=== PATIENT | male | born 1950 | race Caucasian/White ===

== ENCOUNTER → 2024-05-20 06:24 | Outpatient (REF) | payer MEDICARE, BC, SELFPAY ==
[2024-05-20 09:53] LABS: % Basophils 0.9 % (0-2); % Eosinophils 4.7 % (0-6); % Immature Granulocytes 0.4 % (0-0.5); % Lymphocytes 24.7 % (20.5-51.1); % Monocytes 9.5 % (1.7-9.3); % Neutrophils 59.8 % (42.2-75.2); Absolute Basophils 0.1 10^3/uL (0-0.2); Absolute Eosinophils 0.3 10^3/uL (0-0.7); Absolute Lymphocytes 1.4 10^3/uL (1.2-3.4); Absolute Monocytes 0.5 10^3/uL (0.1-0.6); Absolute Neutrophils 3.4 10^3/uL (1.4-6.5); Hematocrit 42.5 % (39.0-52.0); Hemoglobin 14.7 g/dL (13.0-18.0); Mean Corp Hgb Conc. 34.6 g/dL (33.0-37.0); Mean Corpuscular Hgb 29.7 pg (27.0-31.0); Mean Corpuscular Volume 85.9 fL (80.0-94.0); Mean Platelet Volume 12.6 fL (7.4-10.4); Nucleated Red Blood Cells % 0 % (-); Platelet Count 128 10^3/uL (130-400); Red Blood Cell Count 4.95 10^6/uL (4.70-6.10); White Blood Cell Count 5.7 10^3/uL (4.8-10.8)
[2024-05-20 10:24] LABS: ALT (SGPT) 36 U/L (0-50); AST (SGOT) 35 U/L (17-59); Albumin 4.3 g/dl (3.5-5.0); Alkaline Phosphatase 105 U/L (38-126); Blood Urea Nitrogen 27 mg/dl (9-20); Calcium 9.1 mg/dl (8.4-10.2); Carbon Dioxide 26 mmol/L (22-30); Chloride 106 mmol/L (98-107); Glucose 97 mg/dl (70-99); HDL Cholesterol 36 mg/dl; LDL Cholesterol, Calculated 52 mg/dl; Potassium 4.2 mmol/L (3.5-5.1); Sodium 138 mmol/L (135-145); Total Bilirubin 1.4 mg/dl (0.2-1.3); Total Cholesterol 102 mg/dl (50-199); Total Protein 6.6 g/dl (6.3-8.2); Triglyceride 74 mg/dl (10-149); Very Low Density Lipoprotein 14 mg/dl (0-30); eGFR 48.55
[2024-05-20 10:53] LABS: Glycohemoglobin (HgbA1c) 5.6 % (4.0-5.6)
[2024-05-20 10:57] LABS: PSA, Total - Screen 3.03 ng/ml (0.0-4.0); TSH Reflex To Free T4 1.72 uIU/ml (0.47-4.68)
== END ==
LOC: HWLAB 06:24
PROVIDERS: ATTENDING PHYSICIAN Family Medicine
DX: R73.01 Impaired fasting glucose (principal); Z95.1 Presence of aortocoronary bypass graft; N13.2 Hydronephrosis with renal and ureteral calculous obstruction; E03.9 Hypothyroidism, unspecified; E78.2 Mixed hyperlipidemia; D64.9 Anemia, unspecified; Z12.5 Encounter for screening for malignant neoplasm of prostate
CPT/HCPCS: 36415; 80053; 80061; 83036; 84443; 85025; G0103

== ENCOUNTER → 2024-06-15 12:45 | Outpatient (REF) | payer MEDICARE, BC, SELFPAY | LOC: HWRAD 12:45 | PROVIDERS: ATTENDING PHYSICIAN Family Medicine | DX: K59.00 Constipation, unspecified (principal) | CPT/HCPCS: 74022 ==

== ENCOUNTER → 2024-07-31 09:28 | Outpatient (REF) | payer MEDICARE, BC, SELFPAY ==
[2024-07-31 11:31] LABS: % Basophils 0.8 % (0-2); % Immature Granulocytes 0.2 % (0-0.5); % Lymphocytes 21.8 % (20.5-51.1); % Monocytes 7.8 % (1.7-9.3); % Neutrophils 66.4 % (42.2-75.2); Absolute Eosinophils 0.2 10^3/uL (0-0.7); Absolute Lymphocytes 1.2 10^3/uL (1.2-3.4); Absolute Monocytes 0.4 10^3/uL (0.1-0.6); Absolute Neutrophils 3.5 10^3/uL (1.4-6.5); Hematocrit 41.3 % (39.0-52.0); Hemoglobin 14.3 g/dL (13.0-18.0); Mean Corp Hgb Conc. 34.6 g/dL (33.0-37.0); Mean Corpuscular Hgb 29.6 pg (27.0-31.0); Mean Corpuscular Volume 85.5 fL (80.0-94.0); Mean Platelet Volume 12.4 fL (7.4-10.4); Nucleated Red Blood Cells % 0 % (-); Platelet Count 119 10^3/uL (130-400); Red Blood Cell Count 4.83 10^6/uL (4.70-6.10); Red Cell Dist. Width 13.7 % (11.5-14.5); White Blood Cell Count 5.3 10^3/uL (4.8-10.8)
[2024-08-02 03:04] LABS: ANA, IgG Reflex to HEp-2 None Detected (None Detected)
[2024-08-02 09:16] LABS: Platelet Antibody, Direct IgG Negative (Negative); Platelet Antibody, Direct IgM Negative (Negative)
== END ==
LOC: HWLAB 09:28
PROVIDERS: ATTENDING PHYSICIAN Internal Medicine Hematology & Oncology; FAMILY PHYSICIAN Family Medicine
DX: D72.810 Lymphocytopenia (principal)
CPT/HCPCS: 36415; 85025; 86023; 86038

== ENCOUNTER → 2024-08-25 09:36 | Outpatient (REF) | payer MEDICARE, BC, SELFPAY ==
[2024-08-25 12:48] LABS: % Basophils 0.8 % (0-2); % Eosinophils 2.1 % (0-6); % Immature Granulocytes 0.2 % (0-0.5); % Lymphocytes 21.9 % (20.5-51.1); % Monocytes 7.3 % (1.7-9.3); % Neutrophils 67.7 % (42.2-75.2); Absolute Eosinophils 0.1 10^3/uL (0-0.7); Absolute Lymphocytes 1.1 10^3/uL (1.2-3.4); Absolute Monocytes 0.4 10^3/uL (0.1-0.6); Absolute Neutrophils 3.5 10^3/uL (1.4-6.5); Hematocrit 43.1 % (39.0-52.0); Hemoglobin 14.6 g/dL (13.0-18.0); Mean Corp Hgb Conc. 33.9 g/dL (33.0-37.0); Mean Corpuscular Hgb 29.7 pg (27.0-31.0); Mean Corpuscular Volume 87.8 fL (80.0-94.0); Mean Platelet Volume 12.7 fL (7.4-10.4); Nucleated Red Blood Cells % 0 % (-); Platelet Count 119 10^3/uL (130-400); Red Blood Cell Count 4.91 10^6/uL (4.70-6.10); Red Cell Dist. Width 13.5 % (11.5-14.5); White Blood Cell Count 5.2 10^3/uL (4.8-10.8)
[2024-08-26 20:05] LABS: Platelet Antibody, Direct IgG Negative (Negative); Platelet Antibody, Direct IgM Negative (Negative)
[2024-08-27 05:05] LABS: ANA, IgG Reflex to HEp-2 None Detected (None Detected)
== END ==
LOC: HWLAB 09:36
PROVIDERS: ATTENDING PHYSICIAN Internal Medicine Hematology & Oncology; FAMILY PHYSICIAN Family Medicine
DX: D72.810 Lymphocytopenia (principal); R16.1 Splenomegaly, not elsewhere classified
CPT/HCPCS: 36415; 85025; 86023; 86038

== ENCOUNTER → 2024-09-09 10:02 | Outpatient (REF) | payer MEDICARE, BC, SELFPAY ==
[2024-09-09 12:18] LABS: Blood Urea Nitrogen 31 mg/dl (9-20)
== END ==
LOC: HWLAB 10:02
PROVIDERS: ATTENDING PHYSICIAN Internal Medicine Hematology & Oncology; FAMILY PHYSICIAN Family Medicine
DX: D72.810 Lymphocytopenia (principal); R16.1 Splenomegaly, not elsewhere classified
CPT/HCPCS: 36415; 74160; 82565; 84520; Q9967

== ENCOUNTER → 2024-10-15 06:40 | Outpatient (REF) | payer MEDICARE, BC, SELFPAY | LOC: RAD 06:40 | PROVIDERS: ATTENDING PHYSICIAN Family Medicine | DX: I73.9 Peripheral vascular disease, unspecified (principal) | CPT/HCPCS: 93922; 93925 ==

== ENCOUNTER → 2024-12-08 06:58 | Outpatient (REF) | payer MEDICARE, BC, SELFPAY ==
[2024-12-08 07:35] VITALS: BP 139/82; BP_SYST 54
[2024-12-08 07:35] LABS: % Basophils 0.7 % (0-2); % Eosinophils 2.2 % (0-6); % Immature Granulocytes 0.1 % (0-0.5); % Lymphocytes 20.1 % (20.5-51.1); % Monocytes 8.3 % (1.7-9.3); % Neutrophils 68.6 % (42.2-75.2); Absolute Basophils 0.1 10^3/uL (0-0.2); Absolute Eosinophils 0.2 10^3/uL (0-0.7); Absolute Lymphocytes 1.4 10^3/uL (1.2-3.4); Absolute Monocytes 0.6 10^3/uL (0.1-0.6); Absolute Neutrophils 4.7 10^3/uL (1.4-6.5); Hemoglobin 14.8 g/dL (13.0-18.0); Mean Corp Hgb Conc. 34.4 g/dL (33.0-37.0); Mean Corpuscular Hgb 29.8 pg (27.0-31.0); Mean Corpuscular Volume 86.7 fL (80.0-94.0); Mean Platelet Volume 11.3 fL (7.4-10.4); Nucleated Red Blood Cells % 0 % (-); Platelet Count 173 10^3/uL (130-400); Red Blood Cell Count 4.96 10^6/uL (4.70-6.10); White Blood Cell Count 6.9 10^3/uL (4.8-10.8)
[2024-12-08 07:36] LABS: INR 0.96; PT 13.1 Sec (11.4-14.6)
[2024-12-08] MEDS: ATIVAN 0.5 MG IV (08:16)
[2024-12-08] MEDS: NSS (PRESERVATIVE FREE) 0.25 ML IV (08:16)
[2024-12-08] MEDS: FLUSH (NSS) 1 FLUSH IV (08:17)
[2024-12-08 08:55] VITALS: BP 133/84; BP_SYST 57
[2024-12-08 09:00] VITALS: BP 124/72; BP_SYST 57
[2024-12-08 09:05] VITALS: BP 128/72; BP_SYST 54
[2024-12-08 09:10] VITALS: BP 137/90; BP_SYST 55
[2024-12-08 09:21] VITALS: BP 137/90
== END ==
LOC: RADI 06:58
PROVIDERS: ATTENDING PHYSICIAN Internal Medicine Hematology & Oncology; FAMILY PHYSICIAN Family Medicine; REFERRING PHYSICIAN Physician Assistant
DX: D72.810 Lymphocytopenia (principal); D69.6 Thrombocytopenia, unspecified; Z79.01 Long term (current) use of anticoagulants
CPT/HCPCS: 88305; 88311; 88312; 36415; 38222; 77012; 85025; 85610; 88313

== ENCOUNTER → 2025-02-02 15:19 | Outpatient (REF) | payer MEDICARE, BC, SELFPAY ==
[2025-02-02 15:56] LABS: % Basophils 1.1 % (0-2); % Eosinophils 4.9 % (0-6); % Immature Granulocytes 0.3 % (0-0.5); % Lymphocytes 25.4 % (20.5-51.1); % Monocytes 10.5 % (1.7-9.3); % Neutrophils 57.8 % (42.2-75.2); Absolute Basophils 0.1 10^3/uL (0-0.2); Absolute Eosinophils 0.3 10^3/uL (0-0.7); Absolute Lymphocytes 1.7 10^3/uL (1.2-3.4); Absolute Monocytes 0.7 10^3/uL (0.1-0.6); Absolute Neutrophils 3.8 10^3/uL (1.4-6.5); Hematocrit 41.6 % (39.0-52.0); Hemoglobin 14.6 g/dL (13.0-18.0); Mean Corp Hgb Conc. 35.1 g/dL (33.0-37.0); Mean Corpuscular Hgb 30.5 pg (27.0-31.0); Mean Platelet Volume 12.5 fL (7.4-10.4); Nucleated Red Blood Cells % 0 % (-); Platelet Count 125 10^3/uL (130-400); Red Blood Cell Count 4.78 10^6/uL (4.70-6.10); White Blood Cell Count 6.5 10^3/uL (4.8-10.8)
[2025-02-02 16:02] LABS: ALT (SGPT) 31 U/L (0-50); AST (SGOT) 25 U/L (17-59); Albumin 4.7 g/dl (3.5-5.0); Alkaline Phosphatase 102 U/L (38-126); Blood Urea Nitrogen 32 mg/dl (9-20); Calcium 9.3 mg/dl (8.4-10.2); Carbon Dioxide 25 mmol/L (22-30); Chloride 105 mmol/L (98-107); Glucose 103 mg/dl (70-99); Potassium 4.4 mmol/L (3.5-5.1); Sodium 141 mmol/L (135-145); Total Bilirubin 1.5 mg/dl (0.2-1.3); Total Protein 6.8 g/dl (6.3-8.2); eGFR 52.41
== END ==
LOC: RCS 15:19
PROVIDERS: ATTENDING PHYSICIAN Nurse Practitioner; FAMILY PHYSICIAN Family Medicine; REFERRING PHYSICIAN Internal Medicine Interventional Cardiology
DX: I25.10 Atherosclerotic heart disease of native coronary artery without angina pectoris (principal); N18.31 Chronic kidney disease, stage 3a; Z95.1 Presence of aortocoronary bypass graft
CPT/HCPCS: 36415; 80053; 85025; 93306

== ENCOUNTER 2025-02-03 06:48 | Day surgery (SDC) | payer MEDICARE, BC, SELFPAY ==
[2025-02-03] VITALS (17 sets, daily range): BP systolic 97–132; BP diastolic 55–88; BMI 23.7
[2025-02-03] MEDS: LOW STRENGTH ASPIRIN 81 MG PO (07:21)
[2025-02-03] MEDS: NSS 225 ML IV (07:27)
[2025-02-03] MEDS: NSS 1000 IV (09:46)
--- NOTE | 2025-02-03 10:15 | ITS.CL.CATH ---
Physician Neonatology - Catheterization
Cardiac Catheterization
Procedure Report:
LEFT HEART CATHETERIZATION
Date of Procedure: February 03, 2025
Referring: Evelin Constantino PA-C, Karl Benavidez MD
PROCEDURES:
1. Left heart catheterization, coronary angiogram.
2. Selective graft angiography.
3. Moderate sedation.
4. Functional physiologic testing with IFR of mid RCA.
INDICATION: Mr. Samuel is a 74-year-old gentleman with past medical history of hypertension, hyperlipidemia, coronary artery disease status post coronary artery bypass grafting by Dr. Kirk Nieto in 2020 with a MCGHEE to LAD, saphenous vein graft
to RPDA and a saphenous vein graft to D1 who presents with 3 to 4 days ago with exertional chest discomfort being referred for left heart catheterization to rule out obstructive CAD. Currently he is not on any antianginal medications. He has not
had to use any sublingual nitroglycerin either. Chest discomfort generally resolves after resting about 10 minutes. No associated dyspnea on exertion.
ACCESS: Left radial artery, 6 [place] sheath, under ultrasound guidance
HEMODYNAMICS : (mmHg)
AO (s/d) : 112/50
LV (s/d) : 112/4
LVEDP : 17
CORONARY FINDINGS
DOMINANCE: Right
LEFT MAIN: The left main artery is a large-caliber, short vessel which gives rise to the left anterior descending artery and the left circumflex artery. There is mild diffuse atherosclerotic plaque.
LEFT ANTERIOR DESCENDING: The left anterior descending artery is a medium to large caliber vessel with a occlusion in the midportion with a patent MCGHEE graft. Proximal to mid LAD has a 80% stenosis.
CIRCUMFLEX: The left circumflex artery is a medium caliber vessel which gives rise to 1 major obtuse marginal branch. There is 30 to 40% stable ostial left circumflex stenosis. Mid left circumflex has 40 to 50% eccentric stenosis. Proximal OM1
has 30% stenosis. Distal left circumflex artery just beyond OM1 takeoff is a very small caliber vessel with 90% stenosis and not a PCI target.
RIGHT CORONARY ARTERY: The right coronary artery is a medium caliber heavily calcified vessel which gives rise to the right posterior descending artery and the right posterolateral system. Mid RCA has a 50% stenosis. Ostial RPDA appears to be a
likely 100% chronic total occlusion with right to right bridging collaterals. IFR of mid RCA was negative at 0.95
GRAFT ANGIOGRAPHY:
1. MCGHEE to LAD is widely patent.
2. Saphenous vein graft to diagonal is patent.
3. Saphenous vein graft to RPDA is occluded proximally.
HEMODYNAMIC ASSESSMENT OF THE MID RCA WITH A [place] OMNI WIRE: The origin of the RCA was cannulated with a 6 Fr JR4 guide catheter. Intravenous heparin was administered and the ACT was followed during the procedure. Two hundred micrograms of
intracoronary nitroglycerin was given through the guide catheter. A [place] Omni wire was advanced to the guide catheter tip and normalized to guide catheter pressure. The Omni wire was then carefully manipulated across the stenosis in the mid RCA
with the iFR above the ischemic threshold serially measuring 0.95, 0.96, 0.96. The Omni wire was then pulled back to the guide catheter where the Pd/Pa measured 1.0 confirming no baseline drift in pressure readings
SEDATION: 47 minutes of procedural sedation was utilized. An independent medical aides teacher was present to assist with and help manage the patient's level of consciousness and physiologic status.
RADIATION SUMMARY: Fluoro Time (min): 19.5, Dose (mGy): 603, DAP (Gy.cm2) : 38 point
Closure Device: Vascular band over left radial artery, 10 cc of air.
CONCLUSIONS
1. Significant [place] coronary artery disease.
2. MCGHEE to LAD and saphenous vein graft to diagonal are patent.
3. Saphenous vein graft to RPDA is occluded.
4. [place] RCA has a calcified 50% mid RCA stenosis which is IFR negative at 0.95.
5. Ostial RPDA appears to be a likely 100% chronic total occlusion with right to right bridging collaterals.
6. Mildly elevated LVEDP at 17 mmHg.
RECOMMENDATIONS
1. Initiate antianginal therapy for recent exertional angina with amlodipine. Uptitrate as needed for residual symptoms.
2. Aggressive management of cardiovascular risk factors.
3. Wean radial band per protocol.
4. Referral for outpatient cardiac rehab.
Copy to: Evelin Constantino PA-C, Karl Benavidez MD
Bella Myers MD, [facility], [facility]
[2025-02-03 15:47] LABS: ACT-LR - POC 326 Seconds (116-155)
== END 2025-02-03 14:20 | disposition home or self-care (01) ==
LOC: CATH 06:48
PROVIDERS: ATTENDING PHYSICIAN Internal Medicine Interventional Cardiology; FAMILY PHYSICIAN Family Medicine; OTHER PHYSICIAN Internal Medicine Cardiovascular Disease
DX: I25.10 Atherosclerotic heart disease of native coronary artery without angina pectoris (principal); Z87.891 Personal history of nicotine dependence; Z95.5 Presence of coronary angioplasty implant and graft; E78.00 Pure hypercholesterolemia, unspecified; E03.9 Hypothyroidism, unspecified
CPT/HCPCS: 93799; 99152; 99153; 85347; 93459; C1769; C1894; Q9967

== ENCOUNTER 2025-03-04 10:00 | Outpatient (RCR) | payer MEDICARE, BC, SELFPAY ==
[2025-03-05 09:00] LABS: HDL Cholesterol 31 mg/dl; LDL Cholesterol, Calculated 51 mg/dl; Total Cholesterol 94 mg/dl (50-199); Triglyceride 64 mg/dl (10-149); Very Low Density Lipoprotein 12 mg/dl (0-30)
== END 2025-03-04 23:59 | disposition home or self-care (01) ==
LOC: CRHB 10:00
PROVIDERS: ATTENDING PHYSICIAN Internal Medicine Cardiovascular Disease; FAMILY PHYSICIAN Family Medicine
DX: I25.119 Atherosclerotic heart disease of native coronary artery with unspecified angina pectoris (principal); Z95.1 Presence of aortocoronary bypass graft
CPT/HCPCS: 36415; 80061; G0422; G0423

== ENCOUNTER 2025-04-05 08:51 | Outpatient (RCR) | payer MEDICARE, BC, SELFPAY | END 2025-04-05 23:59 | disposition home or self-care (01) | LOC: CRHB 08:51 | PROVIDERS: ATTENDING PHYSICIAN Internal Medicine Cardiovascular Disease; FAMILY PHYSICIAN Family Medicine | DX: I25.118 Atherosclerotic heart disease of native coronary artery with other forms of angina pectoris (principal) | CPT/HCPCS: G0422; G0423 ==

== ENCOUNTER 2025-05-05 08:42 | Outpatient (RCR) | payer MEDICARE, BC, SELFPAY | END 2025-05-05 23:59 | disposition home or self-care (01) | LOC: CRHB 08:42 | PROVIDERS: ATTENDING PHYSICIAN Internal Medicine Cardiovascular Disease; FAMILY PHYSICIAN Family Medicine | DX: I25.118 Atherosclerotic heart disease of native coronary artery with other forms of angina pectoris (principal); I25.119 Atherosclerotic heart disease of native coronary artery with unspecified angina pectoris (principal) | CPT/HCPCS: G0422; G0423 ==

== ENCOUNTER → 2025-05-20 06:08 | Outpatient (REF) | payer MEDICARE, BC, SELFPAY ==
[2025-05-20 09:50] LABS: ALT (SGPT) 52 U/L (0-50); AST (SGOT) 32 U/L (17-59); Albumin 4.7 g/dl (3.5-5.0); Alkaline Phosphatase 97 U/L (38-126); HDL Cholesterol 39 mg/dl; LDL Cholesterol, Calculated 57 mg/dl; Total Protein 7.1 g/dl (6.3-8.2); Very Low Density Lipoprotein 14 mg/dl (0-30)
== END ==
LOC: HWLAB 06:08
PROVIDERS: ATTENDING PHYSICIAN Internal Medicine Cardiovascular Disease; FAMILY PHYSICIAN Family Medicine
DX: E78.2 Mixed hyperlipidemia (principal)
CPT/HCPCS: 36415; 80061; 80076

== ENCOUNTER 2025-05-31 07:30 | Outpatient (RCR) | payer MEDICARE, BC, SELFPAY | END 2025-05-31 13:24 | disposition home or self-care (01) | LOC: CRHB 07:30 | PROVIDERS: ATTENDING PHYSICIAN Internal Medicine Cardiovascular Disease; FAMILY PHYSICIAN Family Medicine | DX: I25.119 Atherosclerotic heart disease of native coronary artery with unspecified angina pectoris (principal); Z95.1 Presence of aortocoronary bypass graft | CPT/HCPCS: G0422; G0423 ==